=== PATIENT | male | born 2000 | race Caucasian/White ===

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

== ENCOUNTER 2021-03-05 19:16 | Emergency (ER) | payer OTHER ==
[~2021-03-05] VITALS: Ht 182.9 cm; Wt 72.6 kg
[2021-03-05] MEDS ORDERED: ERYT1OIN RIGHTEYE (20:42)
== END 2021-03-05 20:49 | disposition home or self-care (01) ==
LOC: ER 19:16
DX: T15.91XA Foreign body on external eye, part unspecified, right eye, initial encounter (principal); H11.431 Conjunctival hyperemia, right eye; Y93.89 Activity, other specified
CPT/HCPCS: 99283; A9270

== ENCOUNTER → 2023-12-03 | Outpatient (CLI) | payer OTHER ==
[~2023-12-03] MED LIST changes: +ERYT1OIN RIGHTEYE
[2023-12-05 10:12] LABS: HEPATITIS B SURFACE ANTIGEN Negative (Negative)
[2023-12-05 11:41] LABS: HEPATITIS C AB CIA INTERP Negative (Negative); HEPATITIS C ANTIBODY CIA INDEX 0.21 IV
[2023-12-05 12:31] LABS: HIV 1,2 COMBO ANTIGEN/ANTIBODY Negative (Negative)
[2023-12-06 10:57] LABS: APTIMA MEDIA TYPE Urine; C. TRACHOMATIS BY TMA Negative (Negative); N. GONORRHOEAE BY TMA Negative (Negative); SPECIMEN SOURCE Urine; T. VAGINALIS BY TMA Negative (Negative)
== END ==
LOC: LAB 11:38 → LAB SHORT 11:38
PROVIDERS: Registered Nurse Community Health
DX: Z11.3 Encounter for screening for infections with a predominantly sexual mode of transmission (principal); Z20.2 Contact with and (suspected) exposure to infections with a predominantly sexual mode of transmission
CPT/HCPCS: 86592; 86803; 87340; 87389; 87491; 87591; 87661

== ENCOUNTER → 2024-01-25 | Outpatient (CLI) | payer OTHER ==
[2024-01-27 18:50] LABS: APTIMA MEDIA TYPE Urine; C. TRACHOMATIS BY TMA Negative (Negative); N. GONORRHOEAE BY TMA Negative (Negative); SPECIMEN SOURCE Urine; T. VAGINALIS BY TMA Negative (Negative)
== END ==
LOC: LAB SHORT 12:06 → LAB 12:06
PROVIDERS: Registered Nurse Community Health
DX: Z11.3 Encounter for screening for infections with a predominantly sexual mode of transmission (principal); Z20.2 Contact with and (suspected) exposure to infections with a predominantly sexual mode of transmission
CPT/HCPCS: 87491; 87591; 87661

== ENCOUNTER 2024-06-18 02:59 | Emergency (ER) | payer OTHER ==
[~2024-06-18] VITALS: Ht 177.8 cm; Wt 74.8 kg
[2024-06-18 06:00] VITALS: BP 162/85
== END 2024-06-18 06:13 | disposition home or self-care (01) ==
LOC: ER 02:59
DX: S00.12XA Contusion of left eyelid and periocular area, initial encounter (principal); S00.83XA Contusion of other part of head, initial encounter; W01.0XXA Fall on same level from slipping, tripping and stumbling without subsequent striking against object, initial encounter
CPT/HCPCS: 70450; 70486; 73030; 99284-25